=== PATIENT | female | born 1990 | race African-American/Black ===

== ENCOUNTER 2018-03-17 14:57 | Emergency (ER) | payer MEDICAID ==
[~2018-03-17] VITALS: Ht 157.5 cm; Wt 45.5 kg
[2018-03-17 15:06] VITALS: BP 109/70
[2018-03-17] MEDS ORDERED: LIDOCAINE-MPF 1%, 2ML ONE (15:13)
[2018-03-17] MEDS ORDERED: LIDOCAINE-MPF 1%, 5ML ONE (15:14)
[2018-03-17] MEDS ORDERED: DIPH,PERTUSS(ACELL),TET VAC/PF 0.5 ML IM-VACC ONE ×2 (15:30→15:57)
[2018-03-17] MEDS ORDERED: LIDOCAINE 1%-EPI 1:100K, 20ML SQ ONE (15:30)
== END 2018-03-17 17:24 | disposition home or self-care (01) ==
LOC: ED 17:22
DX: S51.821A Laceration with foreign body of right forearm, initial encounter (principal); S66.129A Laceration of flexor muscle, fascia and tendon of unspecified finger at wrist and hand level, initial encounter; Z79.82 Long term (current) use of aspirin; W19.XXXA Unspecified fall, initial encounter; Y93.89 Activity, other specified; Y92.89 Other specified places as the place of occurrence of the external cause; Y99.8 Other external cause status
CPT/HCPCS: 12032; 90471; 90715

== ENCOUNTER 2018-04-11 19:29 | Emergency (ER) | payer MEDICAID ==
[~2018-04-11] VITALS: Ht 157.5 cm; Wt 46.9 kg
[2018-04-11 19:31] VITALS: BP 95/54
[2018-04-11] MEDS ORDERED: SULFAMETH./TRIMETHOPRIM DS 800MG/160MG TABLET ONE (19:57)
[2018-04-11] MEDS ORDERED: CEPHALEXIN 500 MG CAPSULE ONE (19:57)
[2018-04-11] MEDS ORDERED: CEPHALEXIN 500 MG CAPSULE PO ONE (20:00)
[2018-04-11] MEDS ORDERED: SULFAMETH./TRIMETHOPRIM DS 800MG/160MG TABLET PO ONE (20:00)
[2018-04-11] MEDS ORDERED: LIDOCAINE-MPF 1%, 5ML ONE (20:01)
[2018-04-11] MEDS ORDERED: LIDOCAINE 1%-EPI 1:100K, 30ML ONE (20:05)
[2018-04-11] MEDS ORDERED: BACITRACIN ZINC OINT 500U/GM, 0.9 GM ONE (20:21)
== END 2018-04-11 20:40 | disposition home or self-care (01) ==
LOC: ED 19:44
DX: S51.811D Laceration without foreign body of right forearm, subsequent encounter (principal)
CPT/HCPCS: 99283